=== PATIENT | female | born 1970 | race Caucasian/White ===

== ENCOUNTER 2020-02-14 09:59 | Outpatient (CLI) | payer OTHER, SELFPAY ==
[2020-02-15 18:52] LABS: SARS-CoV-2 RNA PCR Positive
== END 2020-02-14 10:00 | disposition home or self-care (01) ==
LOC: CHSLAB 10:04
PROVIDERS: PCP Internal Medicine; Visit Provider Internal Medicine
DX: U07.1 COVID-19 (principal)
CPT/HCPCS: 87081; 87635; 87880; C9803; U0003

== ENCOUNTER 2022-03-21 10:11 | Outpatient (CLI) | payer OTHER, SELFPAY ==
--- NOTE | ~2022-03-21 | XR_ITS ---
Clinical Indication: Chest pain PA and lateral views of the chest: Comparison: 06/26/2014 Findings: The lungs are clear, without evidence of focal consolidation or pleural effusion. Cardiome diastinal silhouette is within normal limits. Bones and soft tissues are unremarkable. Impression: Normal chest. Reviewed, dictated and finalized at location [] A PAINTER Impression: Normal chest.
--- NOTE | ~2022-03-21 | XR_ITS ---
Cervical Spine: AP, lateral, open-mouth views Clinical History: Pain Findings: The normal lordotic curve is maintained. The vertebral bodies and posterior elements appea r intact. The intervertebral disc spaces are well maintained. Pre-vertebral soft tissues are unremar kable. Impression: No significant abnormality is seen. Reviewed, dictated and finalized at location [] TIAN BLIND MACHINE OPERATOR Impression: No significant abnormality is seen.
== END 2022-03-21 10:12 | disposition home or self-care (01) ==
LOC: CHSIMG 10:16
PROVIDERS: PCP Internal Medicine; Visit Provider Internal Medicine
DX: K21.9 Gastro-esophageal reflux disease without esophagitis (principal); R07.9 Chest pain, unspecified; M54.2 Cervicalgia
CPT/HCPCS: 71046; 72040

== ENCOUNTER 2022-03-25 07:46 | Outpatient (CLI) | payer OTHER, SELFPAY ==
--- NOTE | ~2022-03-25 | MM_ITS ---
EXAMINATION: MM screening reema BI w osbaldo HISTORY: Screening TECHNIQUE: Craniocaudal and mediolateral oblique 3-D tomosynthesis images were obtained and synthetic 2-D images were generated. CAD analysis was submitted and interpreted. COMPARISON: 10/12/2012. BREAST PARENCHYMAL COMPOSITION: The breasts are heterogeneously dense, which may obscure small masses . FINDINGS: There are new focal asymmetries with possible architectural distortion in the central aspec t of the left breast posteriorly. Recommend comparison with outside examinations to assess stability since the most recent study for comparison is from 2012. There are no suspicious masses, calcificatio ns or architectural distortion in the right breast. IMPRESSION: 1. New focal asymmetries with possible architectural distortion central aspect of the left breast. 2. Recommend comparison to previous interval outside mammograms. BI-RADS Category 0: Incomplete: Needs additional imaging evaluation. Reviewed, dictated and finalized at location A. UNITY LIAISON
--- NOTE | ~2022-03-25 | XR_ITS ---
EXAMINATION: XR UGI w barium swallow DATE: 03/25/2022 08:45 INDICATION: Gastroesophageal reflux disease TECHNIQUE: The patient drank thick barium, gas-producing crystals, and thin barium. Fluoroscopic spot radiographs of the hypopharynx, esophagus, stomach and proximal small bowel were obtained. A total o f 982 images were recorded. Fluoroscopy exposure time was 1.8 minutes. COMPARISON: CT dated 02/19/2015 FINDINGS: The pharynx is symmetric and without evidence of mass lesion or mucosal irregularity. The esophagus i s normal without mass or stricture. Esophageal motility is normal. Small sliding-type hiatal hernia w ith esophageal B ring evident at the gastroesophageal junction approximately 3 cm above level of the diaphragm. There is a small amount of gastroesophageal reflux into the distal esophagus while patient was changing positioning during assessment of the stomach on the double contrast portion of the exam ination. Additional gastroesophageal reflux a moderate amount of contrast extending to the mid thorac ic esophagus was subsequently observed with provocative maneuvers. The stomach and proximal small bow el are normal. IMPRESSION: 1. Small sliding-type hiatal hernia with gastroesophageal reflux. Reviewed, dictated and finalized at location L. CLERK
== END 2022-03-25 07:47 | disposition home or self-care (01) ==
LOC: CHSIMG 07:48
PROVIDERS: PCP Internal Medicine; Visit Provider Internal Medicine
DX: Z12.31 Encounter for screening mammogram for malignant neoplasm of breast (principal); R07.9 Chest pain, unspecified; K21.9 Gastro-esophageal reflux disease without esophagitis; R92.8 Other abnormal and inconclusive findings on diagnostic imaging of breast; K44.9 Diaphragmatic hernia without obstruction or gangrene
CPT/HCPCS: 74240; 77063; 77067

== ENCOUNTER 2022-04-15 08:48 | Outpatient (CLI) | payer OTHER, SELFPAY ==
--- NOTE | ~2022-04-15 | MMUS_ITS ---
EXAMINATION: MM diagnostic reema LT w osbaldo, US breast LT complete HISTORY: Possible architectural distortion in central left breast reported on 03/25/2022 screening ma mmogram examination TECHNIQUE: Additional 3-D tomosynthesis images of the left breast were performed and synthetic 2-D im ages were generated. CAD analysis was submitted and interpreted. High resolution complete left breast ultrasound examination including all 4 quadrants and subareolar area was performed. COMPARISON: 03/25/2022 bilateral screening mammogram FINDINGS: MAMMOGRAPHIC FINDINGS: No suspicious mass or architectural distortion is evident. Minimal benign calcification. No skin thic kening or retraction.. There is a biopsy marker in the upper outer quadrant of the left breast. History of prior benign left breast biopsy. ULTRASOUND: There is a 2.4 x 3.6 mm cyst at 4:00 near the nipple. No suspicious mass or shadowing of the left breast is detected. IMPRESSION: 1. Benign finding 2. Routine annual mammographic screening is recommended BI-RADS Category 2: Benign finding(s). Reviewed, dictated and finalized at location A. RCYCLE TESTER IMPRESSION: 1. Benign finding 2. Routine annual mammographic screening is recommended BI-RADS Category 2: Benign finding(s).
== END 2022-04-15 08:49 | disposition home or self-care (01) ==
LOC: CHSIMG 08:49
PROVIDERS: PCP Internal Medicine; Visit Provider Internal Medicine
DX: R92.8 Other abnormal and inconclusive findings on diagnostic imaging of breast (principal)
CPT/HCPCS: 76641; 77061; 77065; G0279

== ENCOUNTER 2024-03-16 12:00 | Outpatient (CLI) | payer OTHER, SELFPAY ==
--- NOTE | ~2024-03-16 | CT_ITS ---
CT abdomen pelvis wo con Ordering provider: Marshall Small MD History: 54 years Female with . RT FLANK INTO SEVERE LOW PELVIC PAIN,LROM,MICROHEMATURIA . Comparison: None. Technique: CT abdomen and pelvis without IV and without oral contrast. Automated exposure control and iterative reconstruction technique were employed. The dose-length product was 270.77 mGy-cm. Findings: VISUALIZED LOWER CHEST: Normal. UPPER ABDOMINAL ORGANS: Liver: Normal. Gallbladder: Normal. Spleen: Normal. Stomach/duodenum: Thickened lower esophagus suggestive of reflux esophagitis. He Pancreas: Normal. Adrenals: Normal. Kidneys: Normal. PELVIC ORGANS: The bladder is normal. BOWEL AND MESENTERY: Colon: Thickening in the sigmoid colon with surrounding fat stranding suggestive of diverticulitis. F ollow-up sigmoidoscopy is advised after resolution of the inflammatory changes to exclude mass.. High ly suggestive abscess on the left side is noted measuring 4.8 x 2 cm. Normal appendix. Small Bowel: Normal. No obstruction. Peritoneum/mesentery: No free air or free fluid. No mesenteric lymphadenopathy. Panniculitis is seen in the upper abdomen. RETROPERITONEUM: Mild atheromatous disease of the abdominal aorta. No retroperitoneal lymphadenopat hy. MUSCULOSKELETAL: Superficial soft tissues: The superficial soft tissues are normal. Bones: Age appropriate degenerative changes of the spine. IMPRESSION: 1. Diverticulitis of the sigmoid colon with highly suggestive of abscess on the left side. Follow-up after resolution of the inflammatory changes and further evaluation advised to exclude underlying ma ss. 2. Thickened lower esophagus suggestive of reflux esophagitis. 3. Panniculitis in the upper abdomen Reviewed, dictated and finalized at location A. MACHINE OPERATOR IMPRESSION: 1. Diverticulitis of the sigmoid colon with highly suggestive of abscess on th e left side. Follow-up after resolution of the inflammatory changes and further evaluation advised to exclude underlying mass. 2. Thickened lower esophagus suggestive of reflux esophagitis. 3. Panniculitis in the upper abdomen
[2024-03-16 12:17] LABS: Hematocrit 41.8 % (35.0-49.0); Mean Corpuscular HGB Conc 33.5 g/dL (32-36); Mean Corpuscular Hemoglobin 30.9 pg (27.0-31.0); Mean Corpuscular Volume 92.3 fL (78.0-102.0); Platelet Count Result 333 K/mm3 (150-420); Red Blood Count 4.53 M/mm3 (4.20-5.40); Red Cell Distribution Width 12.8 % (11.6-14.4); White Blood Count 12.9 K/mm3 (4.8-10.8)
[2024-03-16 13:12] LABS: Alanine Aminotransferase 37 U/L (14-59); Albumin Level 3.8 g/dL (3.4-5.0); Alkaline Phosphatase 62 U/L (46-116); Amylase 35 U/L (25-115); Anion Gap 10 mmol/L (4-12); Aspartate Amino Transferase 23 U/L (15-37); Bilirubin,Total 1.4 mg/dL (0.00-1.00); Blood Urea Nitrogen 15 mg/dL (7-18); Calcium 9.5 mg/dL (8.5-10.1); Carbon Dioxide 29 mmol/L (21-32); Chloride 102 mmol/L (98-108); Estimated Glomerular Filt Rate > 60; Glucose 96 mg/dL (70-99); Lipase 47 U/L (16-77); Osmolality Calculated 292 mOsm/kg (285-295); Potassium 4.4 mmol/L (3.5-5.1); Sodium 141 mmol/L (136-145); Total Protein 7.4 g/dL (6.4-8.2)
== END 2024-03-16 12:01 | disposition home or self-care (01) ==
PROVIDERS: PCP Internal Medicine; Visit Provider Internal Medicine
DX: R10.30 Lower abdominal pain, unspecified (principal); R31.9 Hematuria, unspecified; K57.92 Diverticulitis of intestine, part unspecified, without perforation or abscess without bleeding; M79.3 Panniculitis, unspecified
CPT/HCPCS: 36415; 74176; 80053; 82150; 83690; 85027

== ENCOUNTER 2024-04-01 15:03 | Outpatient (CLI) | payer OTHER, SELFPAY ==
[2024-04-01 15:27] LABS: Basophils Absolute Auto 0.05 K/mm3 (0.00-0.10); Basophils Percent Auto 0.7 % (0.0-1.0); Eosinophils Absolute Auto 0.18 K/mm3 (0.02-0.50); Eosinophils Percent Auto 2.7 % (1.0-6.0); Hematocrit 39.2 % (35.0-49.0); Hemoglobin 13.2 g/dL (12.0-15.0); Immature Granulocyte Absolute 0.02 K/mm3 (0.00-0.00); Immature Granulocyte Percent A 0.3 % (0.0-0.0); Lymphocytes Absolute Auto 1.69 K/mm3 (1.10-4.50); Mean Corpuscular HGB Conc 33.7 g/dL (32-36); Mean Platelet Volume 9.7 fl (9.2-11.8); Monocytes Absolute Auto 0.44 K/mm3 (0.10-0.90); Monocytes Percent Auto 6.5 % (2.0-11.0); Neutrophils Absolute Auto 4.37 K/mm3 (1.70-7.20); Neutrophils Percent Auto 64.8 % (50.0-70.0); Platelet Count Result 422 K/mm3 (150-420); Red Blood Count 4.26 M/mm3 (4.20-5.40); Red Cell Distribution Width 12.6 % (11.6-14.4); White Blood Count 6.8 K/mm3 (4.8-10.8)
[2024-04-01 15:50] LABS: Alanine Aminotransferase 51 U/L (14-59); Albumin Level 3.8 g/dL (3.4-5.0); Alkaline Phosphatase 56 U/L (46-116); Anion Gap 9 mmol/L (4-12); Aspartate Amino Transferase 31 U/L (15-37); Bilirubin,Total 0.3 mg/dL (0.00-1.00); Blood Urea Nitrogen 17 mg/dL (7-18); Calcium 9.2 mg/dL (8.5-10.1); Carbon Dioxide 28 mmol/L (21-32); Chloride 105 mmol/L (98-108); Estimated Glomerular Filt Rate > 60; Glucose 106 mg/dL (70-99); Osmolality Calculated 295 mOsm/kg (285-295); Potassium 4.2 mmol/L (3.5-5.1); Sodium 142 mmol/L (136-145)
[2024-04-01 15:53] LABS: CRP < 0.5 mg/dL (0.0-0.9)
== END 2024-04-01 15:04 | disposition home or self-care (01) ==
LOC: CHSLAB 15:05
PROVIDERS: PCP Internal Medicine; Visit Provider Internal Medicine
DX: K57.92 Diverticulitis of intestine, part unspecified, without perforation or abscess without bleeding (principal)
CPT/HCPCS: 36415; 80053; 85025; 86140

== ENCOUNTER 2024-04-22 14:47 | Outpatient (CLI) | payer OTHER, SELFPAY ==
--- NOTE | ~2024-04-22 | CT_ITS ---
EXAMINATION: CT abdomen pelvis w con DATE: 04/22/2024 15:18 INDICATION: K57.20 - Diverticulitis of large intestine with perforati... TECHNIQUE: Computed tomography (CT) of the abdomen and pelvis was performed with 100 mL Omnipaque-350 intravenous contrast. Automated exposure control and iterative reconstruction technique were employe d. The dose-length product was 340.22 mGy-cm. COMPARISON: 03/16/2024. FINDINGS: Lower thorax: Unremarkable Liver: Normal. Biliary/Gallbladder: Gallbladder is contracted. No inflammatory changes. No bile duct dilation. Pancreas: No mass or duct dilation. Spleen: Normal. Adrenals:No mass. Kidneys: No suspicious mass, obstructing stone, or hydronephrosis. Multiple bilateral subcentimeter r enal hypodensities, statistically most likely representing cysts. GI tract: Small hiatal hernia. Mild distal esophageal and gastric wall edema. No small or large bowel dilation. Normal appendix. Diverticulosis without diverticulitis. Mesentery/Peritoneum: No ascites, mass, or free air. Prominent upper abdominal mesenteric lymph nodes with surrounding fat halos as can be seen with mesenteric panniculitis. Retroperitoneum: No mass. Atherosclerotic abdominal aortic and/or arterial calcifications. Pelvis: Normal urinary bladder. Absent uterus. Normal bilateral ovaries. Near-complete interval resol ution of the inflammatory changes in the deep pelvis. Small volume free pelvic fluid remains, decreas ed in overall volume, may represent resolving pericolonic abscess/edema and/or physiologic free pelvi c fluid. Soft Tissues: Soft tissues and body wall unremarkable. Bones: No acute osseous finding. IMPRESSION: Mild esophagitis/gastritis. No current evidence of acute diverticulitis. Result inflammatory change and decreased fluid in the deep pelvis. No current CT evidence of pericolo lissy abscess. Reviewed, dictated and finalized at location K. R DEPARTMENT SUPERVISOR IMPRESSION: Mild esophagitis/gastritis. No current evidence of acute diverticulitis. Result inflammatory change and decreased fluid in the deep pelvis. No current C T evidence of pericolonic abscess.
[2024-04-22 15:08] LABS: Estimated Glomerular Filt Rate > 60
== END 2024-04-22 14:48 | disposition home or self-care (01) ==
PROVIDERS: PCP Internal Medicine; Visit Provider Surgery
DX: K57.20 Diverticulitis of large intestine with perforation and abscess without bleeding (principal); R10.31 Right lower quadrant pain; K29.60 Other gastritis without bleeding
CPT/HCPCS: 74177; Q9967

== ENCOUNTER 2024-06-06 05:55 | Day surgery (SDC) | payer OTHER, SELFPAY ==
[2024-05-03 11:50] VITALS: BMI 26.0
[2024-06-06 06:11] VITALS: BP 139/91; PULSE 72; RESP 15; TEMP 36.9; O2SAT 94
--- NOTE | 2024-06-06 06:57 | WPDANESEPPF ---
Anes - Initial Pre Proc Eval Procedure: Operation Date: 06/06/24 07:30 Proposed Procedures p Screening Colonoscopy - Jean Claude Gonsalez DO Date/Time: 06/06/24 06:57 Surgeon: Jean Claude Gonsalez DO Pre Op Diagnosis: Neoplasm Screening Patient Data Age: 54 Gender: F Height: 1.57 m Weight: 62 kg Last Vital Signs Temp 36.9 C 06/06/24 06:11 Pulse 72 06/06/24 06:11 Resp 15 06/06/24 06:11 BP 139/91 H 06/06/24 06:11 Pulse Ox 94 06/06/24 06:11 O2 Del Method Room Air 06/06/24 06:11 Allergies Allergy/AdvReac Type Severity Reaction Status Date / Time No Known Allergies Allergy Unknown Verified 06/06/24 06:10 Home Medications ?Medication ?Instructions ?Recorded ?Confirmed ?Type losartan 50 mg tablet 50 mg PO DAILY 05/17/24 06/06/24 History Patient hx anesthesia problems: none Family hx anesthesia problems: none Results Review: All pre-operative results and documents have been reviewed as part of the pre-operative evaluation. [facility] Past Medical History Medical History (Updated 04/15/24 @ 11:01 by Lisset Bach) GERD (gastroesophageal reflux disease) Surgical History Surgical History (Updated 04/15/24 @ 10:04 by Mckenna Garner MA) H/O: hysterectomy Family History Family History (Updated 04/15/24 @ 10:04 by Mckenna Garner MA) Father Diabetes mellitus Hypertension Social History Social History (Updated 04/15/24 @ 10:05 by Mckenna Garner MA) Smoking status: Never smoker Alcohol intake: current Drinks per week: 4 Substance use: never Substance use type: does not use Current Housing: Decline to Answer Concerned About Future Housing: Decline to Answer Difficulty Paying Gas/Electric Bills: Decline to Answer Difficulty Paying for Meds: Decline to Answer Currently Unemployed: Decline to Answer Education: Decline to Answer Difficulty w/ Childcare or Family Care: Decline to Answer Living arrangements: with family Spiritual care concerns: No Anes - Eval Final PreProcedure Day of Procedure 06/06/24 06:57 Patient weight: normal Heart: regular rate and rhythm Lungs: clear to auscultation and normal air movement Airway: Mallampati scale class II Neurological: alert and oriented Last oral intake: >/= 8 hours ASA classification: II Emergent: no Anesthetic plan: proceed Anesthesia type and monitoring: general GIVS and standard monitoring Results Review: All pre-operative results and documents have been reviewed as part of the pre-operative evaluation. Informed Consent: The patient's anesthetic plan and its attendant risks and benefits were discussed with the patient/family/POA. Questions were solicited and answers provided to the satisfaction of the patient/family/POA.
[2024-06-06] MEDS: LACTATED RINGERS 1,000 ML 150 ML IV CONT (07:04)
--- NOTE | 2024-06-06 07:22 | PM.IMHP ---
H&P: HPI History of Present Illness Date/Time: 06/06/24 07:22 Chief Complaint: screening for colorectal cancer Narrative: 54 yo woman presents for colonoscopy. She has never had one before. Denies hematochezia or melena. No fam hx colon cancer. She did have diverticulitis about 3 months ago. Review of Systems Review of Systems: All systems reviewed & are unremarkable except as noted in HPI and below Constitutional: Constitutional: Denies chills, Denies fever(s), Denies headache(s) and Denies weight loss Eyes: Eyes: Denies change in vision ENT: Denies dizziness, Denies headache(s), Denies neck mass and Denies throat swelling Cardiovascular: Cardiovascular: Denies chest pain, Denies lightheadedness and Denies dyspnea Respiratory: Respiratory: Denies cough, Denies dyspnea and Denies wheezing Gastrointestinal: Gastrointestinal: Denies abdominal pain, Denies change in bowel habits, Denies nausea and Denies vomiting Genitourinary: Genitourinary: Denies hematuria and Denies dysuria Musculoskeletal: Musculoskeletal: Reports as per HPI Integumentary/Breasts: Skin/Breast: Reports as per HPI Neurologic: Denies dizziness and Denies headache(s) Allergic/Immunologic: Allergic/Immunologic: Denies throat swelling and Denies wheezing [facility] Past Medical History Medical History (Updated 06/06/24 @ 07:24 by Jean Claude Gonsalez DO) GERD (gastroesophageal reflux disease) Surgical History Surgical History (Updated 04/15/24 @ 10:04 by Mckenna Garner MA) H/O: hysterectomy Family History Family History (Updated 04/15/24 @ 10:04 by Mcknena Garner MA) Father Diabetes mellitus Hypertension Social History Social History (Updated 04/15/24 @ 10:05 by Mckenna Garner MA) Smoking status: Never smoker Alcohol intake: current Drinks per week: 4 Substance use: never Substance use type: does not use Current Housing: Decline to Answer Concerned About Future Housing: Decline to Answer Difficulty Paying Gas/Electric Bills: Decline to Answer Difficulty Paying for Meds: Decline to Answer Currently Unemployed: Decline to Answer Education: Decline to Answer Difficulty w/ Childcare or Family Care: Decline to Answer Living arrangements: with family Spiritual care concerns: No Meds Home Medications and Allergies Home Medications ?Medication ?Instructions ?Recorded ?Confirmed ?Type losartan 50 mg tablet 50 mg PO DAILY 05/17/24 06/06/24 History Allergies Allergy/AdvReac Type Severity Reaction Status Date / Time No Known Allergies Allergy Unknown Verified 06/06/24 06:10 Vital Signs Vital Signs - 24 hr 06/06/24 06:11 Temperature 98.4 F Pulse Rate 72 Respiratory Rate 15 Blood Pressure 139/91 H Pulse Oximetry 94 Oxygen Delivery Room Air Exam Const: General: no acute distress and alert Orientation/consciousness: patient oriented x3 HENMT: Head: normocephalic and atraumatic Ears: hearing grossly normal bilaterally Face/Nose/Sinus: Normal nares present Mouth: Yes Normal oral and palatal mucosa present Eyes: Periorbital: periorbital findings normal Sclera: sclerae normal EOM: EOMs intact bilaterally Neck: Neck: normal visual inspection, no lymphadenopathy and trachea midline Chest: Chest palpation & inspection: normal inspection of the chest Resp: Effort & Inspection: normal respiratory effort Auscultation: clear to auscultation bilaterally Cardio: Jugular venous distension: no JVD Rate: regular rate Rhythm: regular rhythm Heart sounds: S1 normal heart sound present and S2 normal heart sound present Peripheral pulses: Peripheral pulses 2+ throughout GI: Inspection: normal to inspection GI Palp: Yes Soft to palpation, No Tenderness to palpation present (GI), No Guarding due to palpation present (GI) and No Rebound tenderness present Percussion: Yes normal to percussion Auscultation: normal bowel sounds : General: Yes no CVA tenderness Back/Spine/Pelvis: Back: no CVA tenderness Neuro: General: patient oriented x3, no focal motor deficits and CN's II-XI intact bilaterally Cognition (Neuro): normal cognition Speech: normal speech Motor exam (neuro): 5/5 motor strength present throughout Extrem: General: capillary refill normal and no clubbing, cyanosis or edema Assessment and Plan Assessment and plan (1) Screening for colorectal cancer: Code(s): Z12.11 - Encounter for screening for malignant neoplasm of colon; Z12.12 - Encounter for screening for malignant neoplasm of rectum Status: Acute Assessment and Plan: I have recommended colonoscopy. I have discussed the procedure, risks, benefits, and alternatives. Questions were answered. Patient is agreeable to proceed.
[2024-06-06 07:43] VITALS: BP 99/73; PULSE 78; RESP 14; O2SAT 97
[2024-06-06 07:53] VITALS: BP 113/78; PULSE 67; RESP 14; O2SAT 97
[2024-06-06 08:03] VITALS: BP 122/95; PULSE 64; RESP 15; O2SAT 99
--- NOTE | 2024-06-06 09:13 | WPDANESPN ---
Anes - Prog Note Post-Op Date/Time: 06/06/24 09:13 Cardiovascular status: normal Respiratory status: normal Airway patency: baseline Mental status: baseline Post-Op hydration status: normal Vital Signs: Last Vital Signs Temp 36.9 C 06/06/24 06:11 Pulse 64 06/06/24 08:03 Resp 15 06/06/24 08:03 BP 122/95 H 06/06/24 08:03 Pulse Ox 99 06/06/24 08:03 O2 Del Method Room Air 06/06/24 08:03 Pain Score (VAS): 0 I/O: Intake & Output 06/05/24 06/06/24 06/06/24 23:59 07:59 15:59 Intake Total 200 300 Balance 200 300 Post-procedural complaints: none Patient Feedback: Patient satisfied with anesthetic care. Other Findings: Patient vital signs back to baseline. Patient denies nausea and vomiting. Patient's pain under control. Patient OK for discharge.
== END 2024-06-06 08:12 | disposition home or self-care (01) ==
PROVIDERS: PCP Internal Medicine; Visit Provider Surgery
PROC: 0DJD8ZZ Inspection of Lower Intestinal Tract, Via Natural or Artificial Opening Endoscopic (ICD-10-PCS; CPT 45378; principal; 2024-06-06 07:30)
DX: Z12.11 Encounter for screening for malignant neoplasm of colon (principal); K57.30 Diverticulosis of large intestine without perforation or abscess without bleeding
CPT/HCPCS: 45378

== ENCOUNTER 2024-06-20 14:54 | Outpatient (CLI) | payer OTHER, SELFPAY ==
--- NOTE | ~2024-06-20 | US_ITS ---
EXAM: PELVIC ULTRASOUND HISTORY: R10.31 - Right lower quadrant pain COMPARISON: None. Reference is also made to the CT examination of the abdomen and pelvis dated 04/22/2024 FINDINGS: UTERUS: Surgically absent RIGHT OVARY: The right ovary is unremarkable in echogenicity and size measuring 1.7 x 1.0 x 1.8 cm. Dopplerable flow is identified. LEFT OVARY: The left ovary is unremarkable in echogenicity and size measuring 2.3 x 1.0 x 1.9 cm Dopplerable flow is identified. No free fluid is identified within the pelvis. IMPRESSION: Unremarkable sonographic evaluation of the pelvis, as detailed above. Reviewed, dictated and finalized at location A.
== END 2024-06-20 14:55 | disposition home or self-care (01) ==
LOC: MICIMG 14:55
PROVIDERS: PCP Nurse Practitioner Obstetrics & Gynecology; Visit Provider Nurse Practitioner Obstetrics & Gynecology
DX: R10.31 Right lower quadrant pain (principal)
CPT/HCPCS: 76830; 76856